=== PATIENT | female | born 1955 | race Hispanic/Latino ===

== ENCOUNTER 2017-12-26 17:29 | Emergency (ER) | payer OTHER ==
--- NOTE | 2017-12-26 17:51 | ED PDOC ---
HPI: Skin/Bite Injury Time Seen by Provider: 12/26/17 17:30 Chief Complaint (Provider): R breast pain History Per: Patient History/Exam Limitations: no limitations Onset/Duration Of Symptoms: Days (1) Quality Of Symptoms: Painful, Swollen Severity: Moderate Additional History Per: Patient Additional Complaint(s): Pt here after waking up today with swollen painful R breast. Pt has recently recovered from fungal infection of the skin under bilateral breasts. had finished fluconazole. now last night she developed painful and swollen and red area at 7 ocklock. pt notes she has fibrocystic breasts and follows up for mammograms etc. Pt c/o subjective fever. no vomiting or diarrhea. Past Medical History - Medical History PMH: Diverticulitis (Diverticulosis) - Surgical History Surgical History: No Surg Hx - Family History Family History: States: Unknown Family Hx - Social History Current smoker - smoking cessation education provided: No Alcohol: None Drugs: Denies - Home Medications Home Medications: Ambulatory Orders Medication Instructions Recorded Cephalexin [cephalexin] 500 mg PO QID 10 Days #40 cap 12/26/17 - Allergies Allergies/Adverse Reactions: Allergies Allergy/AdvReac Type Severity Reaction Status Date / Time ciprofloxacin [From Cipro] Allergy SHORTNESS Verified 12/26/17 17:46 OF BREATH doxycycline Allergy SHORTNESS Verified 12/26/17 17:46 OF BREATH levofloxacin [From Levaquin] Allergy SHORTNESS Verified 12/26/17 17:46 OF BREATH Review of Systems ROS Statement: Except As Marked, All Systems Reviewed And Found Negative Constitutional: Positive for: Fever (subjective), Chills Musculoskeletal: Positive for: Other (R breast pain/swelling) Physical Exam - Reviewed Nursing Documentation Reviewed: Yes - Physical Exam Appears: Positive for: Well, Non-toxic, No Acute Distress Skin: Positive for: Normal Color, Warm, Dry, Rash (at the R breast at around 7 oclock there is area of swelling, slight induration, and erythema consistent with cellulitis (spans around 2 inches by 2 inches). no nipple discharge.) Neck: Positive for: Normal Cardiovascular/Chest: Positive for: Regular Rate, Rhythm Respiratory: Positive for: Normal Breath Sounds Gastrointestinal/Abdominal: Positive for: Normal Exam Extremity: Positive for: Normal ROM Neurologic/Psych: Positive for: Alert, Oriented - Laboratory Results Result Diagrams: 12/26/17 18:34 12/26/17 18:34 Medical Decision Making Medical Decision Making: R breast pain and swelling. ro cellulitis ro abscess noted cellulitis need to rule out abscess with breast ultrasound labs iv abx then po abx to go home and outpt follow up for resolution of cellulitis. Disposition - Clinical Impression Clinical Impression: Cellulitis of breast - Patient ED Disposition Is Patient to be Admitted: No Counseled Patient/Family Regarding: Studies Performed, Diagnosis, Need For Followup - Disposition Disposition: Routine/Home Disposition Time: 18:35 Condition: IMPROVED Prescriptions: Cephalexin [cephalexin] 500 mg PO QID 10 Days #40 cap Instructions: Cellulitis (Skin Infection), Adult (DC) Forms: [facility] (Romansh)
[2017-12-26 18:44] LABS: BASO # 0.1 K/uL (0.0-0.2); BASO % 0.7 % (0.0-2.0); EOS # 0.2 K/uL (0.0-0.7); EOS % 1.8 % (0.0-4.0); LYMPH # 3.1 K/uL (1.0-4.3); LYMPH % 26.8 % (20.0-40.0); MEAN CELL VOLUME 78.7 fl (81.0-99.0); MEAN CORPUSCULAR HEMOGLOBIN 25.7 pg (27.0-31.0); MEAN CORPUSCULAR HGB CONC 32.6 g/dL (33.0-37.0); MEAN PLATELET VOLUME 8.2 fl (7.2-11.7); MONO # 1.2 K/uL (0.0-0.8); MONO % 10.2 % (0.0-10.0); NEUT % 60.5 % (50.0-75.0); RBC 5.46 Mil/uL (3.80-5.20); WHITE BLOOD COUNT 11.6 K/uL (4.8-10.8)
[2017-12-26 18:50] LABS: ALBUMIN 4.5 g/dL (3.5-5.0); ALT/SGPT 52 U/L (9-52); AST/SGOT 30 U/L (14-36); BLOOD UREA NITROGEN 22 mg/dl (7-17); GFR AFRICAN-AMERICAN > 60; GFR NON-AFRICAN AMERICAN > 60
--- NOTE | 2017-12-27 11:47 | US ---
HISTORY: TECHNIQUE: Sonographic evaluation of both breast was performed. FINDINGS: RIGHT BREAST: Cyst(s): None Breast mass: None Dilated ducts: None Parenchymal distortion: None Skin thickening or subcutaneous abnormalities: At the site of erythema, there is cutaneous and subcutaneous edema (07-2011 o'clock). Morphologically, unremarkable lymph node(s) IMPRESSION: Cutaneous, subcutaneous edema without focal abnormality. BIRADS: BIRADS 2 Benign findings. Patient management should be based on findings on physical examination in the absence of either ultrasound and/or mammographic correlate. Concordant results (preliminary interpretation) provided by [facility]. Procedure Completed: 19:58 Preliminary ([facility]) Report: Dictated and Authenticated: 20:42 Final Interpretation: 11:45 December 27, 2017.
== END 2017-12-26 20:00 | disposition home or self-care (01) ==
LOC: H.ER 17:29
DX: L03.319 Cellulitis of trunk, unspecified (principal)
CPT/HCPCS: 76641; 80053; 85025; 87040; 96365; 99282; J0295